=== PATIENT | female | born 1965 | race American Indian/Alaskan Native ===

== ENCOUNTER 2018-01-01 01:18 | Emergency (ER) | payer MEDICAID ==
[2018-01-01 01:32] VITALS: BP 116/82
== END 2018-01-01 01:55 | disposition left against medical advice (07) ==
LOC: ED 01:18
DX: R07.89 Other chest pain (principal); Z53.21 Procedure and treatment not carried out due to patient leaving prior to being seen by health care provider

== ENCOUNTER 2018-09-29 11:32 | Outpatient (CLI) | payer MEDICAID ==
[2018-09-29 12:40] LABS: Blood Urea Nitrogen 8 mg/dL (7-17)
--- NOTE | 2018-09-29 14:43 | Cat Scan Report ---
CT CHEST WITH CONTRAST INDICATION / CLINICAL INFORMATION: PULMONARY NODULES. TECHNIQUE: Axial CT images were obtained through the chest after Omnipaque 300 100 cc IV contrast. Sagittal and coronal reformatted images. All CT scans at this location are performed using CT dose reduction for A VIKI by means of automated exposure control. COMPARISON: None available. FINDINGS: HEART: No significant abnormality. THORACIC AORTA: No significant abnormality. MEDIASTINUM and REJI: No significant abnormality. LUNGS: Minimal centrilobular emphysematous changes are identified in both upper lobes. There is a 0.7 cm ill-defined airspace density in the lateral right upper lobe on image 23. This has the appearance of a focal scar. No suspicious soft tissue pulmonary nodule or mass is identified. No infiltrate. PLEURA: No significant pleural effusion. No pneumothorax. SKELETAL SYSTEM: A chronic ununited fracture in the right posterolateral 10th rib is identified. A henley bacute healing fracture is identified in the posterior left sixth rib. No suspicious bony lesion. UPPER ABDOMEN: No significant abnormality. ADDITIONAL FINDINGS: None. IMPRESSION: Minimal emphysematous changes. 7 mm airspace density in the right upper lobe resembling a scar. Consi demetrius follow-up in 12 months if clinical concern persists. No suspicious pulmonary nodules identified. Bilateral rib fractures as described. Signer Name: Manuel Fernandes Jr, MD Signed: 09/29/2018 2:38 PM Workstation Name: [id number]
== END 2018-09-29 11:33 | disposition home or self-care (01) ==
LOC: CT 11:32
PROVIDERS: ATTEND Internal Medicine Critical Care Medicine
DX: S22.32XA Fracture of one rib, left side, initial encounter for closed fracture (principal); S22.31XA Fracture of one rib, right side, initial encounter for closed fracture; J43.9 Emphysema, unspecified; X58.XXXA Exposure to other specified factors, initial encounter; Y93.89 Activity, other specified; Y92.89 Other specified places as the place of occurrence of the external cause; Y99.8 Other external cause status
CPT/HCPCS: 36415; 71260; 82565; 84520; Q9967